=== PATIENT | female | born 2005 ===

== ENCOUNTER → 2024-07-21 | Outpatient (REF) | payer BC | LOC: M LAB REF 16:23 | PROVIDERS: ATTEND Physician Assistant | DX: J02.9 Acute pharyngitis, unspecified (principal) ==

== ENCOUNTER → 2025-09-01 | Outpatient (REF) | payer BC | LOC: M LAB REF 16:47 | PROVIDERS: ATTEND Nurse Practitioner Family | DX: J02.9 Acute pharyngitis, unspecified (principal) ==